=== PATIENT | male | born 1970 | race Caucasian/White ===

== ENCOUNTER 2017-07-01 15:36 | Emergency (ER) | payer BC ==
[2017-07-01 16:33] VITALS: BP 146/92
--- NOTE | 2017-07-01 16:35 | UC ---
Respiratory Complaint HPI - HPI Summary HPI Summary: Seen pcp 1 week ago dx with bronchitis rx with tessalon, albuterol,prednisone-- Sx are getting worse now has intermittent fever and harsh cough - History of Current Complaint Chief Complaint: UCRespiratory Stated Complaint: COUGH Time Seen by Provider: 07/01/17 16:34 Hx Obtained From: Patient Onset/Duration: Gradual Onset, Worse Since - past 24 hours Timing: Constant Severity Initially: Moderate Severity Currently: Moderate Character: Cough: Nonproductive Aggravating Factors: Nothing Alleviating Factors: Other - treatment from PCP without relief Associated Signs And Symptoms: Positive: Fever - Allergies/Home Medications Allergies/Adverse Reactions: Allergies Allergy/AdvReac Type Severity Reaction Status Date / Time environmental Allergy Intermediate Congestion Uncoded 07/01/17 16:35 Home Medications: Home Medications predniSONE TAB* [Deltasone TAB*] 2 tab PO DAILY 07/01/17 [History Confirmed ] PMH/Surg Hx/FS Hx/Imm Hx Previously Healthy: Yes - Surgical History Surgical History: Yes Surgery Procedure, Year, and Place: Hand 2007 - Family History Known Family History: Positive: None - Social History Occupation: Employed Full-time Lives: With Family Alcohol Use: Occasionally Substance Use Type: None Smoking Status (MU): Never Smoked Tobacco Review of Systems Constitutional: Fever Skin: Negative Eyes: Negative ENT: Negative Respiratory: Cough Cardiovascular: Negative Gastrointestinal: Negative Genitourinary: Negative Motor: Negative Neurovascular: Negative Musculoskeletal: Negative Neurological: Negative Psychological: Negative Is Patient Immunocompromised?: No All Other Systems Reviewed And Are Negative: Yes Physical Exam Triage Information Reviewed: Yes Appearance: No Pain Distress, Well-Nourished, Ill-Appearing - mild Vital Signs: Initial Vital Signs Temp 98.8 F 07/01/17 16:30 Pulse 101 07/01/17 16:30 Resp 18 07/01/17 16:30 BP 146/92 07/01/17 16:30 Pulse Ox 98 07/01/17 16:30 Vital Signs Reviewed: Yes Eye Exam: Normal Eyes: Positive: Conjunctiva Clear ENT Exam: Normal ENT: Positive: Normal ENT inspection, Hearing grossly normal, Pharynx normal, TMs normal, Uvula midline. Negative: Nasal congestion, Nasal drainage, Tonsillar swelling, Tonsillar exudate, Trismus, Muffled voice, Hoarse voice, Dental tenderness, Sinus tenderness Dental Exam: Normal Neck exam: Normal Neck: Positive: Supple, Nontender, No Lymphadenopathy Respiratory Exam: Normal Respiratory: Positive: Chest non-tender, Lungs clear, Normal breath sounds - lower lobe-right, No respiratory distress, No accessory muscle use, Respiratory distress, Wheezing Cardiovascular Exam: Normal Cardiovascular: Positive: RRR, No Murmur, Pulses Normal, Brisk Capillary Refill Musculoskeletal Exam: Normal Musculoskeletal: Positive: Strength Intact, ROM Intact, No Edema Neurological Exam: Normal Neurological: Positive: Alert, Muscle Tone Normal Psychological Exam: Normal Skin Exam: Normal UC Diagnostic Evaluation - Laboratory O2 Sat by Pulse Oximetry: 98 Respiratory Course/Dx - Course Course Of Treatment: Add Zithromax, contiue medicates as RX--follow bp with pcp increase fluids rest - Differential Dx/Diagnosis Provider Diagnoses: Acute Bronchitis with Bronchospasm, elevated blood pressure with dx of hypertension Discharge - Discharge Plan Condition: Stable Disposition: HOME Prescriptions: Azithromycin TAB* [Zithromax TAB (Z-GILMA) 250 mg #6 tabs] 2 tab PO .TODAY, THEN 1 DAILY #1 gilma Patient Education Materials: Acute Bronchitis (ED), Hypertension (ED), Acute Cough (ED) Forms: *Work Release Referrals: Simon Bone MD [Primary Care Provider] - 1 Week
== END 2017-07-01 16:55 | disposition home or self-care (01) ==
LOC: UCEAST 15:36
DX: J20.9 Acute bronchitis, unspecified (principal); R03.0 Elevated blood-pressure reading, without diagnosis of hypertension
CPT/HCPCS: 99202; G0463